=== PATIENT | female | born 1970 | race Caucasian/White ===

== ENCOUNTER 2020-09-25 11:07 | Emergency (ER) | payer OTHER ==
[~2020-09-25] VITALS: Ht 160 cm; Wt 63.5 kg
[~2020-09-25 11:07] MED LIST: CLONAZEPAM0.125 MG/T
[2020-09-25] MEDS ORDERED: QUETIAPINE FUM100 MG PO (11:19)
[2020-09-25] MEDS ORDERED: LITHIUM CARBON150 MG PO (11:20)
[2020-09-25] MEDS ORDERED: ZIPSOR25 MG PO (17:09)
== END 2020-09-25 17:19 | disposition home or self-care (01) ==
LOC: ER 11:07
DX: R11.10 Vomiting, unspecified (principal); K52.89 Other specified noninfective gastroenteritis and colitis

== ENCOUNTER 2024-06-30 14:39 | Emergency (ER) | payer OTHER ==
[~2024-06-30] VITALS: Ht 160 cm; Wt 56.2 kg
[~2024-06-30 14:39] MED LIST changes: +LITHIUM CARBON150 MG PO; +QUETIAPINE FUM100 MG PO; +ZIPSOR25 MG PO
[2024-06-30] MEDS ORDERED: SEROQUEL200 MG PO (15:55)
[2024-06-30] MEDS ORDERED: LIDOCAINE HCL 1% 10ML VIAL ONE (16:25)
[2024-06-30] MEDS ORDERED: TETANUS & DIPHTHERIA TOX,ADULT 0.5 ML VIAL IM ONE (16:30)
[2024-06-30] MEDS ORDERED: LIDOCAINE HCL 1% 10ML VIAL IJ ONE (16:30)
[2024-06-30] MEDS ORDERED: TETANUS DIPHTHERIA TOX. ADSOR 5 ML VIAL IM ONE (16:32)
[2024-06-30] MEDS ORDERED: CLINDAMYCIN PHOSPHATE 150 MG/ML (300mg) ONE (16:53)
[2024-06-30] MEDS ORDERED: CLINDAMYCIN PHOSPHATE 150 MG/ML (600mg) IM ONE (17:00)
== END 2024-06-30 17:46 | disposition home or self-care (01) ==
LOC: ER 14:42
DX: S61.011A Laceration without foreign body of right thumb without damage to nail, initial encounter (principal); W45.8XXA Other foreign body or object entering through skin, initial encounter; Y93.89 Activity, other specified; Y92.89 Other specified places as the place of occurrence of the external cause; Y99.8 Other external cause status
CPT/HCPCS: 12001; 90471; 90714; J1670